=== PATIENT | male | born 1965 | race Caucasian/White ===

== ENCOUNTER 2024-01-16 13:33 | Inpatient (IN) | payer MEDICARE, OTHER ==
[2024-01-16 14:22] VITALS: BMI 25.4
[2024-01-16] MEDS ORDERED: ONDANSETRON *ODT* 4 MG TABLET SL PRN (16:25)
[2024-01-16] MEDS ORDERED: BISMUTH SUBSALICYLATE 524 MG/30 ML PO PRN (16:25)
[2024-01-16] MEDS ORDERED: NALOXONE (NARCAN) HCL 4 MG/0.1 ML SPRAY NS PRN (16:25)
[2024-01-16] MEDS ORDERED: POLYETHYLENE GLYCOL (HEALTHYLAX) 3350 17 GM PACKET PO PRN (16:25)
[2024-01-16] MEDS ORDERED: BENZONATATE 200 MG CAPSULE PO PRN (16:25)
[2024-01-16] MEDS ORDERED: LOPERAMIDE HCL 2 MG CAPSULE PO PRN (16:25)
[2024-01-16] MEDS ORDERED: DICYCLOMINE HCL 10 MG CAPSULE PO PRN (16:25)
[2024-01-16] MEDS ORDERED: guaiFENesin 600 MG TABLET.ER (FP) PO PRN (16:25)
[2024-01-16] MEDS ORDERED: ACETAMINOPHEN 325 MG TABLET (FP) PO PRN (16:25)
[2024-01-16] MEDS ORDERED: IBUPROFEN 400 MG TABLET (FP) PO PRN (16:25)
[2024-01-16] MEDS ORDERED: BENZOCAINE/MENTHOL (CHLORASEPTIC ) LOZENGE MM PRN (16:25)
[2024-01-16] MEDS: NICOTINE 14 MG/24 HOURS TOPICAL PATCH TD SCH (18:12)
[2024-01-16] MEDS: cloNIDine HCL 0.1 MG TABLET PO SCH (18:14)
[2024-01-16] MEDS: IBUPROFEN 600 MG TABLET (FP) PO PRN (18:15)
[2024-01-16] MEDS: METHOCARBAMOL 500 MG TABLET PO PRN (18:15)
[2024-01-16] MEDS: MAGNESIUM HYDROX 2400MG/30ML ORAL SUSPENSION 30 ML CUP PO PRN (18:16)
[2024-01-16] MEDS: THIAMINE 100 MG TABLET PO SCH (22:29)
[2024-01-16] MEDS: MELATONIN 5 MG TABLETS PO SCH (22:29)
[2024-01-16] MEDS: hydrOXYzine PAMOATE 25 MG CAPSULE (FP) PO PRN (22:30)
[2024-01-17] MEDS: PRENATAL VITAMINS W/ FOLIC ACID TABLET (FP) PO SCH (09:44)
[2024-01-17 10:49] LABS: HEMATOCRIT 37.6 % (35.4-49); HEMOGLOBIN 12.3 GM/dL (11.7-16.9); MCH 29.1 pg (25.7-33.7); MCHC 32.6 g/dl (32.0-35.9); MEAN CELL VOLUME 89.4 fl (80-96); MEAN PLT VOLUME 10.2 fl (7.5-11.1); PLATELET COUNT 242 10^3/uL (134-434); RBC 4.21 M/mm3 (4.00-5.60); RDW 13.9 % (11.9-15.9); WHITE BLOOD COUNT 8.6 K/mm3 (4.0-10.0)
[2024-01-17 11:06] LABS: ALBUMIN 3.3 g/dl (3.4-5.0); CALCIUM 8.6 mg/dL (8.5-10.1)
[2024-01-17 11:11] LABS: BILIRUBIN,TOTAL 0.5 mg/dL (0.2-1); TOT PROT 5.8 g/dl (6.4-8.2)
[2024-01-17] MEDS ORDERED: methaDONE HCL 10 MG TABLET PO SCH (18:00)
[2024-01-17] MEDS: methaDONE 40 MG, methaDONE 20 MG PO SCH ×2 (18:25→20:27)
[2024-01-18] MEDS: methaDONE HCL 10 MG TABLET PO ONE (09:23)
[2024-01-18] MEDS: cloNIDine HCL 0.1 MG TABLET PO PRN (09:23)
[2024-01-20] MEDS ORDERED: methaDONE HCL 10 MG TABLET PO ONE (09:38)
[2024-01-20] MEDS: methaDONE HCL 10 MG TABLET PO ONE (10:18)
[2024-01-20] MEDS: methaDONE 40 MG, methaDONE 20 MG PO ONE (10:18)
[2024-01-20] MEDS: MAG HYDROX/AL HYDROX/SIMETH 30 ML UNIT-DOSE CUP PO PRN (10:21)
[2024-01-21] MEDS ORDERED: methaDONE HCL 10 MG TABLET PO SCH (06:00)
[2024-01-21] MEDS: methaDONE 40 MG, methaDONE 20 MG PO SCH (06:36)
[2024-01-21 09:38] VITALS: BP 135/86; PULSE 77; RESP 18; TEMP 96.9
[2024-01-21] MEDS: NALOXONE (NYS OPIOID OVERDOSE PROGRAM) 4 MG/0.1 ML SPRAY NS PRN (09:46)
[2024-01-21] MEDS ORDERED: methaDONE HCL 40 MG DISPERSABLE TABLET PO ONE (10:00)
[2024-01-21] MEDS: NALOXONE (NYS OPIOID OVERDOSE PROGRAM) 4 MG/0.1 ML SPRAY NS SCH (10:21)
[2024-01-22] MEDS ORDERED: methaDONE HCL 10 MG TABLET PO ONE (10:00)
== END 2024-01-21 11:25 | disposition home or self-care (01) | DRG 897 ==
LOC: YASAS 13:33 → Y6N 17:22
PROVIDERS: ADMIT Allergy & Immunology; ATTEND Surgery
PROC: HZ2ZZZZ Detoxification Services for Substance Abuse Treatment (ICD-10-PCS; principal; 2024-01-16)
DX: F11.23 Opioid dependence with withdrawal (principal); F19.282 Other psychoactive substance dependence with psychoactive substance-induced sleep disorder; F12.20 Cannabis dependence, uncomplicated; F17.210 Nicotine dependence, cigarettes, uncomplicated; F39 Unspecified mood [affective] disorder; F32.A Depression, unspecified
CPT/HCPCS: 36415; 80053; 80305; 80307; 85027; 86780; 93005; 93010